=== PATIENT | female | born 1980 | race Hispanic/Latino ===

== ENCOUNTER 2024-08-09 13:06 | Outpatient (CLI) | payer OTHER | END 2024-08-09 13:07 | disposition home or self-care (01) | LOC: CSHULT 13:06 | DX: Z34.93 Encounter for supervision of normal pregnancy, unspecified, third trimester (principal); Z3A.32 32 weeks gestation of pregnancy | CPT/HCPCS: 76805 ==

== ENCOUNTER 2024-09-28 14:52 | Inpatient (IN) | payer MEDICAID, OTHER, SELFPAY ==
[2024-09-27 15:49] LABS: Hematocrit 40.9 % (34.9-44.5); Hemoglobin 13.6 g/dL (12.0-15.5); Platelet Count 241 10x3/uL (150-450)
[2024-09-27 16:46] LABS: Syphilis Antibody Nonreactive (Nonreactive); Syphilis Antibody Index 0.05 S/CO (<1.00 Non-Reactive)
[2024-09-27 16:48] LABS: HBsAg Index 0.28 S/CO (0-0.99); Hep B Surf Ag Non-Reactive S/CO (NonReactive)
[2024-09-28] MEDS ORDERED: Hepatitis B Vaccine 10 MCG/0.5 ML SYR ONE (16:43)
[2024-09-28] MEDS ORDERED: Methylergonovine 0.2 MG/ML VIAL IM PRN (19:12)
[2024-09-28] MEDS ORDERED: Lactated Ringer's 1,000 ML IV SCH (19:12)
[2024-09-28] MEDS ORDERED: Acetaminophen 500 MG TAB PO PRN (19:12)
[2024-09-28] MEDS ORDERED: Diphenoxylate HCl/Atropine Tablet PO PRN (19:12)
[2024-09-28] MEDS ORDERED: Bicitra 30 ML UDCUP PO PRN (19:12)
[2024-09-28] MEDS ORDERED: Tranexamic Acid 1,000 MG/10 ML VIAL IVP PRN (19:12)
[2024-09-28] MEDS ORDERED: Ondansetron PF 4 MG/2 ML Vial IVP PRN ×3 (19:12→21:08)
[2024-09-28] MEDS ORDERED: Misoprostol 200 MCG TAB PR PRN (19:12)
[2024-09-28] MEDS ORDERED: Promethazine HCl 25 MG/ML VIAL IM PRN ×3 (19:12→21:08)
[2024-09-28] MEDS ORDERED: hydrALAZINE 20 MG/ML VIAL SLOW IVP PRN ×2 (19:12→21:08)
[2024-09-28] MEDS ORDERED: Carboprost 250 MCG/ML AMP IM PRN (19:12)
[2024-09-28] MEDS ORDERED: CEFAZOLIN 2 GM in Sodium Chloride 0.9% 100 ML IVPB SCH (19:12)
[2024-09-28] MEDS ORDERED: Famotidine/PF 20 mg/2ml Vial SLOW IVP PRN (19:12)
[2024-09-28] MEDS ORDERED: Moisturizing Cream (Eucerin) 113 GM JAR TOP PRN (19:22)
[2024-09-28] MEDS ORDERED: Ketorolac Tromethamine 30 MG (1 mL) VIAL IVP PRN (19:22)
[2024-09-28] MEDS ORDERED: fentaNYL 50 mcg/mL 1 mL Vial SLOW IVP PRN (19:22)
[2024-09-28] MEDS ORDERED: Naloxone HCl 0.4 mg/ml Vial IV PRN (19:22)
[2024-09-28] MEDS ORDERED: Naloxone HCl 0.4 mg/ml Vial IVP PRN ×2 (19:22)
[2024-09-28] MEDS ORDERED: Meperidine HCl/PF 25 MG (1 mL) VIAL SLOW IVP PRN (19:22)
[2024-09-28] MEDS ORDERED: Communication Order-Pharmacy FS SCH (19:30)
[2024-09-28 19:52] VITALS: BMI 31.4
[2024-09-28] MEDS: Oxytocin 30 units/NS 500 ML 500 ML IV SCH (20:00)
[2024-09-28] MEDS: Ketorolac Tromethamine 30 MG (1 mL) VIAL IVP SCH (20:00)
[2024-09-28] MEDS: Ondansetron PF 4 MG/2 ML Vial IVP PRN (20:06)
[2024-09-28] MEDS: diphenhydrAMINE 50 MG/ML VIAL IVP PRN (21:00)
[2024-09-28] MEDS ORDERED: Lanolin Ointment 7 GM TUBE TOP PRN (21:08)
[2024-09-28] MEDS ORDERED: Bisacodyl 10 MG SUPP PR PRN (21:08)
[2024-09-28] MEDS ORDERED: diphenhydrAMINE 25 MG CAP PO PRN (21:08)
[2024-09-28] MEDS ORDERED: Boostrix 0.5 ML (Tdap) VIAL (>/=7 yrs of age) IM ONE (21:08)
[2024-09-28] MEDS: Phytonadione Neonatal 1 MG/0.5 ML AMP ONE (22:07)
[2024-09-28] MEDS: Erythromycin Base 0.5% Oint 1 GM TUBE ONE (22:07)
[2024-09-28] MEDS: CEFAZOLIN 2 GM VIAL ONE (22:08)
[2024-09-28] MEDS: Morphine PF 10 MG/10 ML VIAL ONE (22:08)
[2024-09-28] MEDS: Ondansetron PF 4 MG/2 ML Vial ONE (22:08)
[2024-09-28] MEDS: fentaNYL 50 mcg/mL 1 mL Vial ONE (22:08)
[2024-09-28] MEDS: Oxytocin 10 UNITS/ML VIAL ONE (22:08)
[2024-09-28] MEDS: ePHEDrine Sulfate 50 MG/10 ML VIAL ONE (22:09)
[2024-09-28] MEDS: Docusate 100 MG CAP PO SCH (22:10)
[2024-09-28] MEDS: Ferrous Sulfate 325 MG TAB PO SCH (22:10)
[2024-09-29] MEDS: Ketorolac Tromethamine 30 MG (1 mL) VIAL IVP SCH (02:00)
[2024-09-29 04:40] LABS: Hematocrit 31.6 % (34.9-44.5); Hemoglobin 10.5 g/dL (12.0-15.5); Mean Corpuscular HGB CONC 33.2 g/dL (32.0-36.0); Mean Corpuscular Hemoglobin 29.1 pg (27.0-33.0); Mean Corpuscular Volume 87.5 fL (81.6-98.3); Mean Platelet Volume 9.9 fL (7.4-10.4); Platelet Count 202 10x3/uL (150-450); RBC Distribution Width 14.5 % (11.5-14.5); Red Blood Cell (RBC) Count 3.61 10x6/uL (3.90-5.03); White Blood Cell (WBC) Count 5.88 10x3/uL (3.5-10.5)
[2024-09-29] MEDS ORDERED: HYDROcodone/Acetaminophen 5/325 mg Tablet PO PRN (07:30)
[2024-09-29] MEDS ORDERED: Meperidine HCl/PF 25 MG (1 mL) VIAL IM PRN (07:30)
[2024-09-29] MEDS: Prenatal Vitamin 1 TAB PO SCH (08:30)
[2024-09-29] MEDS: HYDROcodone/Acetaminophen 5/325 mg Tablet PO PRN (12:58)
[2024-09-29] MEDS: Simethicone Chewable 80 MG TAB PO PRN (12:59)
[2024-09-29] MEDS: Ibuprofen 800 MG TAB PO SCH ×2 (16:00→21:16)
[2024-10-01 08:03] VITALS: BP 100/62; TEMP 98
== END 2024-10-01 16:40 | disposition home or self-care (01) | DRG 788 ==
LOC: CSHLD 14:52 → CSHPP 21:25 → MERGE 10-01 14:46
PROVIDERS: ADMIT Family Medicine; ATTEND Family Medicine
PROC: 10D00Z1 Extraction of Products of Conception, Low, Open Approach (ICD-10-PCS; principal; 2024-09-28)
DX: O34.13 Maternal care for benign tumor of corpus uteri, third trimester (principal); Z3A.39 39 weeks gestation of pregnancy; Z37.0 Single live birth; D25.9 Leiomyoma of uterus, unspecified
CPT/HCPCS: 36415; 51702; 85014; 85018; 85027; 85049; 86780; 86850; 86900; 86901; 87340; J1200; J1885; J2274; J2405; J2590; J3010